=== PATIENT | female | born 1975 | race Two or more races ===

== ENCOUNTER 2016-11-17 18:34 | Emergency (ER) | payer OTHER ==
[~2016-11-17] VITALS: Ht 157.5 cm; Wt 80.4 kg
[2016-11-17 20:27] LABS: CALCIUM 9.1 mg/dL (8.5-10.1); CARBON DIOXIDE 31.2 mmol/L (21-32); CHLORIDE SERUM 107 mmol/L (98-107); CREATININE SERUM 0.6 mg/dL (0.6-1.0); GFR1 > 60 mL/min; GLUCOSE SERUM 113 mg/dL (74-106); POTASSIUM SERUM 4.1 mmol/L (3.5-5.1); SODIUM SERUM 142 mmol/L (136-145)
[2016-11-17 21:05] VITALS: BP 132/79
== END 2016-11-17 21:05 | disposition home or self-care (01) ==
LOC: ED 18:34
PROVIDERS: Emergency Medicine
DX: L03.317 Cellulitis of buttock (principal)

== ENCOUNTER 2016-11-19 11:35 | Emergency (ER) | payer OTHER ==
[~2016-11-19] VITALS: Ht 157.5 cm; Wt 80.4 kg
[2016-11-19 13:50] VITALS: BP 138/88
== END 2016-11-19 13:50 | disposition home or self-care (01) ==
LOC: ED 11:35
DX: M54.5 Low back pain (principal)